=== PATIENT | female | born 1960 | race Caucasian/White ===

== ENCOUNTER 2017-05-26 21:43 | Emergency (ER) | payer BC ==
[~2017-05-26] VITALS: Ht 160 cm; Wt 59.1 kg
[~2017-05-26 21:43] MED LIST: ADDERALL XR20 MG PO; ADVAIR PO; ALLEGRA ALLERG180 MG PO; BIAXIN 500MG T500 MG PO; ETHAMBUTOL HYD100 MG PO; LEVAQUIN 750MG750 M1 PO; NASONEX SPRAY17 GM NS; PREDNISONE10 MG PO; PRIL40 PO; PROAIR HFA0.09 MG/AC IH; RIFADIN300 MG PO; RT ADVAIR 228 DISKUS IH; RT SPIRIVA18 MCG IH; THEO-24 30300 MG/CAP PO; ZANTAC 150MG T150 MG PO; ZOFRAN ODT4 MG PO
[2017-05-26 21:49] VITALS: BP 132/73; TEMP 98.4
[2017-05-26] MEDS ORDERED: NORCO 325 MG-51 TAB PO (22:46)
[2017-05-26 23:01] VITALS: PULSE 69
== END 2017-05-26 23:02 | disposition home or self-care (01) ==
LOC: COL.ER 21:43
DX: S42.432A Displaced fracture (avulsion) of lateral epicondyle of left humerus, initial encounter for closed fracture (principal); W18.39XA Other fall on same level, initial encounter
CPT/HCPCS: J1170; J2550

== ENCOUNTER → 2019-10-16 | Outpatient (CLI) | payer BC ==
[~2019-10-16] MED LIST changes: +NORCO 325 MG-51 TAB PO
== END ==
LOC: MC.RAD 09-10 10:30
DX: Z12.31 Encounter for screening mammogram for malignant neoplasm of breast (principal)